=== PATIENT | female | born 2005 | race Two or more races ===

== ENCOUNTER 2023-12-21 00:36 | Emergency (ER) | payer MEDICAID, SELFPAY ==
[2023-12-21 01:31] VITALS: BP 128/65; PULSE 132; RESP 16; TEMP 37.1; O2SAT 97; BMI 40.7
[2023-12-21 01:57] LABS: Basophils Percent Auto 0.2 % (0-2); Eosinophils Percent Auto 0.1 % (0-4); Hematocrit 46.5 % (37.0-47.0); Hemoglobin 15.9 g/dl (12.0-16.0); Imm Gran Abs Auto 0.04 X10*3/uL (0.00-0.03); Imm Gran Pct Auto 0.2 % (0.0-0.4); Lymphocytes Absolute Auto 0.6 X10*3/uL (1.2-4.9); Lymphocytes Percent Auto 3.7 % (20-40); MANUAL DIFF FLAG SCAN; Mean Corpuscular HGB Conc 34.2 g/dl (31.0-35.0); Mean Corpuscular Hemoglobin 27.3 pg (27.0-33.0); Mean Corpuscular Volume 79.9 fL (80.0-98.0); Mean Platelet Volume 9.5 fL (9.4-12.3); Monocytes Absolute Auto 0.5 X10*3/uL (0.1-1.2); Monocytes Percent Auto 3.2 % (2-11); Neutrophils Absolute Auto 15.3 x10*3/uL (2.0-8.3); Neutrophils Percent Auto 92.6 % (45-73); Platelet Count 358 X10*3/uL (160-400); Red Blood Count 5.82 X10*6/uL (4.20-5.50); Red Cell Distribution Width 12.9 % (11.0-16.0); SCAN SMEAR FLAG 1; White Blood Count 16.5 X10*3/uL (4.8-10.8)
[2023-12-21 02:08] LABS: Anion Gap 16 (12-20); Blood Urea Nitrogen 15 mg/dL (9-16); Calcium 9.8 mg/dL (8.4-10.2); Carbon Dioxide 24 mmol/L (22-29); Chloride 105 mmol/L (96-108); Estimated Glomerular Filt Rate > 60; Glucose Random 169 mg/dL (60-115); Potassium 3.7 mmol/L (3.3-5.1); Sodium 141 mmol/L (135-145)
[2023-12-21 02:15] LABS: SLIDE REVIEW VERIFIED
[2023-12-21 03:20] VITALS: BP 113/76; PULSE 111; RESP 18; TEMP 36.8; O2SAT 98
--- NOTE | 2023-12-22 10:44 | PC.NURSE ---
Spoke with patient regarding elevated WBC from yestrerday. Patient LWBS. Patient states that she is starting to feel better, less dizzy and nausea and will follow up with us if needed. She is from [facility] but is establishing a PCP here in [place].
== END 2023-12-21 05:26 | disposition left against medical advice (07) ==
PROVIDERS: Emergency Provider Emergency Medicine
DX: R42 Dizziness and giddiness (principal); R11.10 Vomiting, unspecified
CPT/HCPCS: 36415; 80048; 85025; 99282; 99283